=== PATIENT | male | born 1995 | race Caucasian/White ===

== ENCOUNTER 2018-12-25 14:46 | Emergency (ER) | payer MEDICAID ==
[~2018-12-25] VITALS: Ht 177.8 cm; Wt 89.0 kg
[2018-12-25 14:50] VITALS: BP 120/95
[2018-12-25] MEDS ORDERED: IBUP-1984 PO (15:39)
== END 2018-12-25 16:02 | disposition home or self-care (01) ==
LOC: ER 14:46
DX: S80.12XA Contusion of left lower leg, initial encounter (principal); F41.9 Anxiety disorder, unspecified; F17.200 Nicotine dependence, unspecified, uncomplicated; Z98.890 Other specified postprocedural states; Z91.030 Bee allergy status; Z79.899 Other long term (current) drug therapy; W11.XXXA Fall on and from ladder, initial encounter; Y93.89 Activity, other specified; Y92.89 Other specified places as the place of occurrence of the external cause; Y99.8 Other external cause status
CPT/HCPCS: 73590; 99283

== ENCOUNTER 2019-02-14 00:17 | Emergency (ER) | payer MEDICAID ==
[~2019-02-14] VITALS: Ht 177.8 cm; Wt 89.0 kg
[2019-02-14 01:08] LABS: CLARITY,URINE CLEAR (Clear); COLOR,URINE YELLOW (Yellow); GLUCOSE, URINE NEGATIVE (Neg); KETONES,URINE NEGATIVE (Neg); LEUKOCYTE ESTERASE ,URINE NEGATIVE (Neg); NITRITES, URINE NEGATIVE (Neg); OCCULT BLOOD,URINE NEGATIVE (Neg); PROTEIN,URINE TRACE mg/dl (Neg)
[2019-02-14 01:10] LABS: UA COLLECTION TYPE CLN CATCH MIDSTREAM
[2019-02-14] MEDS ORDERED: penicillin G benzathine 1.2 million unit/2ml syringe IM ONE (01:10)
[2019-02-14 01:15] LABS: WBC,URINE NONE SEEN /HPF (0-4)
[2019-02-14 01:16] LABS: BACTERIA,URINE NONE SEEN /HPF (Neg); RBC,URINE 0-2 /HPF (0-2); SPERM MODERATE /HPF (NEGATIVE); SQUAMOUS EPITHELIAL CELL,UR FEW /LPF (FEW)
[2019-02-14 01:50] VITALS: BP 142/108
[2019-02-15 07:35] LABS: RPR Non Reactive (Non Reactive)
== END 2019-02-14 01:53 | disposition home or self-care (01) ==
LOC: ER 00:18
DX: N50.9 Disorder of male genital organs, unspecified (principal); N50.812 Left testicular pain; N50.811 Right testicular pain; F41.9 Anxiety disorder, unspecified; Z98.890 Other specified postprocedural states; Z91.030 Bee allergy status
CPT/HCPCS: 36415; 81001; 86592; 87252; 87491; 87591; 96372; 99284; J0561

== ENCOUNTER 2019-08-12 22:43 | Emergency (ER) | payer MEDICAID, OTHER ==
[~2019-08-12] VITALS: Ht 177.8 cm; Wt 93.2 kg
[2019-08-12] MEDS ORDERED: bacitracin 15gm ointment TP ONE (22:55)
[2019-08-12] MEDS ORDERED: TETanus/Pertussis (Acell)/Diphther VAC/PF (Tdap-Adult) 0.5ml syringe IMVAC ONE (22:55)
[2019-08-12 23:33] VITALS: BP 138/80
--- NOTE | 2019-08-14 13:36 | NUR ---
DR FARIAS, RADIOLOGIST REQUESTED THAT PT BE CALLED TO CHECK TO HOW HE IS DOING. AND TO F/U WITH APPOINTMENT WITH DR OLIVERA. ATTEMPTED TO CALL PT, PHONE NOT WORKING, CALLED FAMILY AND THE PHONE # LISTED IN CHART IS CORRECT. CALLED PT'S GIRL FRIEND TO PASS A MSG ON THROUGH HER, UNABLE TO LEAVE MSG DUE TO VOICE MAIL BOX IS FULL
== END 2019-08-12 23:46 | disposition home or self-care (01) ==
LOC: ER 22:43
DX: S93.402A Sprain of unspecified ligament of left ankle, initial encounter (principal); F41.9 Anxiety disorder, unspecified; Z98.890 Other specified postprocedural states; Z91.030 Bee allergy status; V86.49XA Person injured while boarding or alighting from other special all-terrain or other off-road motor vehicle, initial encounter; Y93.89 Activity, other specified; Y92.89 Other specified places as the place of occurrence of the external cause; Y99.8 Other external cause status
CPT/HCPCS: 73610; 73630; 90715; 99284

== ENCOUNTER 2019-09-17 20:46 | Emergency (ER) | payer OTHER ==
[~2019-09-17] VITALS: Ht 177.8 cm; Wt 90.5 kg
[2019-09-17 20:50] VITALS: BP 126/66
== END 2019-09-17 21:34 | disposition home or self-care (01) ==
LOC: ER 20:47
DX: S93.402D Sprain of unspecified ligament of left ankle, subsequent encounter (principal); Z98.890 Other specified postprocedural states; Z91.030 Bee allergy status; V86.4 Person injured while boarding or alighting from special all-terrain or other off-road motor vehicle
CPT/HCPCS: 99281

== ENCOUNTER 2020-05-25 16:49 | Emergency (ER) | payer OTHER ==
--- NOTE | 2020-05-25 17:59 | NUR ---
Patient called a second time, not in lobby
== END 2020-05-25 19:55 | disposition left against medical advice (07) ==
LOC: ER 16:49
DX: S91.339A Puncture wound without foreign body, unspecified foot, initial encounter (principal); Z53.21 Procedure and treatment not carried out due to patient leaving prior to being seen by health care provider; W45.0XXA Nail entering through skin, initial encounter; Y93.89 Activity, other specified; Y92.89 Other specified places as the place of occurrence of the external cause; Y99.8 Other external cause status

== ENCOUNTER 2021-10-15 20:49 | Emergency (ER) | payer SELFPAY | END 2021-10-16 00:34 | disposition home or self-care (01) | LOC: VAS 20:50 | DX: R42 Dizziness and giddiness (principal); Z53.21 Procedure and treatment not carried out due to patient leaving prior to being seen by health care provider ==

== ENCOUNTER 2022-06-30 12:05 | Emergency (ER) | payer MEDICAID ==
[~2022-06-30] VITALS: Ht 177.8 cm; Wt 95.5 kg
[2022-06-30 12:13] VITALS: BP 118/81
[2022-06-30 12:31] LABS: CLARITY,URINE CLEAR (Clear); COLOR,URINE YELLOW (Yellow); GLUCOSE, URINE NEGATIVE (Neg); KETONES,URINE TRACE mg/dl (Neg); LEUKOCYTE ESTERASE ,URINE NEGATIVE (Neg); NITRITES, URINE NEGATIVE (Neg); OCCULT BLOOD,URINE NEGATIVE (Neg); PH,URINE 7.5 (4.8-8.0); PROTEIN,URINE NEGATIVE (Neg); UA COLLECTION TYPE CLN CATCH MIDSTREAM; UROBILINOGEN,URINE 0.2 E.U/dL (0.2-1.0)
== END 2022-06-30 13:25 | disposition home or self-care (01) ==
LOC: ER 12:06
DX: R30.0 Dysuria (principal); R10.30 Lower abdominal pain, unspecified; Z91.030 Bee allergy status
CPT/HCPCS: 81003; 99283

== ENCOUNTER 2022-07-23 08:30 | Outpatient (CLI) | payer MEDICAID | END 2022-07-23 23:59 | disposition home or self-care (01) | LOC: LAB 08:30 | PROVIDERS: ATTEND Orthopaedic Surgery | DX: T84.84XA Pain due to internal orthopedic prosthetic devices, implants and grafts, initial encounter (principal); Y83.8 Other surgical procedures as the cause of abnormal reaction of the patient, or of later complication, without mention of misadventure at the time of the procedure; Y92.89 Other specified places as the place of occurrence of the external cause | CPT/HCPCS: 73502; 73552; 73590 ==

== ENCOUNTER 2022-08-03 18:12 | Emergency (ER) | payer MEDICAID ==
[~2022-08-03] VITALS: Ht 177.8 cm; Wt 88.6 kg
[2022-08-03 18:16] VITALS: BP 133/73
[2022-08-03] MEDS ORDERED: CefTRIAXone 500MG IM Kit w/LIDOcaine IM ONE (18:25)
[2022-08-03] MEDS ORDERED: azithromycin 250mg tablet PO ONE (18:25)
== END 2022-08-03 19:00 | disposition home or self-care (01) ==
LOC: ER 18:14
DX: Z11.3 Encounter for screening for infections with a predominantly sexual mode of transmission (principal); N50.811 Right testicular pain; N50.812 Left testicular pain; Z91.030 Bee allergy status
CPT/HCPCS: 99281

== ENCOUNTER 2022-08-30 10:03 | Emergency (ER) | payer MEDICAID ==
[~2022-08-30] VITALS: Ht 175.3 cm; Wt 86.8 kg
[2022-08-30 10:27] VITALS: BP 122/72
[2022-08-30 12:18] LABS: HIV ANTIBODY 1&2 RAPID NON-REACTIVE (Neg)
[2022-09-01 16:13] LABS: HEPATITIS C VIRUS ANTIBODY Non Reactive (Non Reactive)
== END 2022-08-30 11:51 | disposition home or self-care (01) ==
LOC: ER 10:03
DX: Z11.3 Encounter for screening for infections with a predominantly sexual mode of transmission (principal); Z91.030 Bee allergy status
CPT/HCPCS: 36415; 86592; 86703; 86704; 86705; 86706; 86803; 87491; 87522; 99283

== ENCOUNTER 2024-03-06 11:40 | Emergency (ER) | payer MEDICAID ==
[~2024-03-06] VITALS: Ht 177.8 cm; Wt 91.9 kg
[2024-03-06] MEDS ORDERED: PRED20TA PO (12:27)
[2024-03-06] MEDS ORDERED: TRIA15CR61 TOP (12:27)
[2024-03-06 12:35] VITALS: BP 120/66; PULSE 70; RESP 18; TEMP 97.8; O2SAT 99
== END 2024-03-06 12:37 | disposition home or self-care (01) ==
LOC: ER 11:41
DX: L40.8 Other psoriasis (principal); F41.9 Anxiety disorder, unspecified; Z91.030 Bee allergy status; Z79.899 Other long term (current) drug therapy; Z98.890 Other specified postprocedural states; Z72.89 Other problems related to lifestyle
CPT/HCPCS: 99283

== ENCOUNTER 2024-05-29 13:17 | Emergency (ER) | payer MEDICAID, OTHER ==
[2024-05-29] MEDS ORDERED: ACET-1025 PO (21:09)
[2024-05-29] MEDS ORDERED: IBUP-1985 PO (21:09)
== END 2024-05-29 14:57 | disposition left against medical advice (07) ==
LOC: ER 13:17
DX: M54.9 Dorsalgia, unspecified (principal); Z91.030 Bee allergy status; Z53.21 Procedure and treatment not carried out due to patient leaving prior to being seen by health care provider

== ENCOUNTER 2024-05-29 20:07 | Emergency (ER) | payer MEDICAID, OTHER ==
[~2024-05-29] VITALS: Ht 177.8 cm; Wt 90.9 kg
[2024-05-29] MEDS ORDERED: ACET-1025 PO (21:09)
[2024-05-29] MEDS ORDERED: IBUP-1985 PO (21:09)
[2024-05-29] MEDS: acetaminophen 325mg tablet PO ONE (21:19)
[2024-05-29] MEDS: ibuprofen tablet 400 MG TABLET PO ONE (21:20)
[2024-05-29 21:24] VITALS: BP 129/73; PULSE 82; RESP 16; TEMP 97.7; O2SAT 97
== END 2024-05-29 21:21 | disposition home or self-care (01) ==
LOC: ER 20:08
DX: M54.50 Low back pain, unspecified (principal); F41.9 Anxiety disorder, unspecified; Z91.030 Bee allergy status; Z98.890 Other specified postprocedural states
CPT/HCPCS: 99283